=== PATIENT | female | born 1990 | race Caucasian/White ===

== ENCOUNTER → 2018-01-13 | Outpatient (CLI) | payer OTHER | LOC: M RAD 11:49 | DX: O16.3 Unspecified maternal hypertension, third trimester (principal); Z3A.30 30 weeks gestation of pregnancy | CPT/HCPCS: 76811 ==

== ENCOUNTER 2018-01-31 20:25 | Outpatient (CLI) | payer OTHER ==
--- NOTE | 2018-01-31 23:11 | IPNPDOC ---
Text Note Date of Service The patient was seen on 01/31/18. NOTE Triage Note Pattie is a 27yo with SIUP at approx 31wk who presents today for a couple of complaints. She notes she had pre-E with prior at 40w5d and she was concerned because she had some sharp pain in her upper abdomen that radiated to her back earlier, also a little bit of blurry vision with going upstairs. She denies GERD. She was given 1L of IVF in triage for some uterine irritability initially that totally resolved. She notes no ctx, no LOF, no vaginal bleeding. Has felt good movement. No headaches. Vitals: bp wnl, afebrile General: WDWN, resting comfortably in bed Abdomen: soft, gravid, NTTP in all quadrants with no rebound/guarding Back: No CVAT Extremities: no edema of BLE, no pain with palpation of calves FHRT: bl 130, +accels, -decels, mod caesar- reassuring for gest age [place]: initial slight uterine irritability that completely resolved Assessment: Pattie is a 27yo with SIUP at approx 31wk with normal complaints of , no e/o pre-eclampsia. Vitals wnl, benign exam. Silva ssuring status. Plan: -Safe for discharge -Encouraged increased hydration -Encouraged use of belly belt -Encouraged warm shower or bath to ease muscle strain in back along with massage -Keep routine visit this coming week in OB clinic -Continue chronic meds -Return precautions discussed MD Luna Fountain Katrina D MD Jan 31, 2018 23:11
== END 2018-01-31 23:41 | disposition home or self-care (01) ==
LOC: M LDO 20:25
PROVIDERS: ATTEND Obstetrics & Gynecology
DX: O99.89 Other specified diseases and conditions complicating pregnancy, childbirth and the puerperium (principal); M54.9 Dorsalgia, unspecified; R10.10 Upper abdominal pain, unspecified; O09.293 Supervision of pregnancy with other poor reproductive or obstetric history, third trimester; Z3A.31 31 weeks gestation of pregnancy
CPT/HCPCS: 59025; G0378; G0463

== ENCOUNTER → 2018-02-12 | Outpatient (CLI) | payer OTHER ==
--- NOTE | 2018-02-12 12:05 | REP ---
Clinical: Growth evaluation. History of hypertension. Comparison: 01/13/2018 . Findings: Examination demonstrates a single live intrauterine in transverse (head to maternal right) presentation. motion is identified by technologist. Placenta is noted anterior and grade grade 1 without evidence for placenta previa or abruption. Amniotic fluid volume is normal. Cervix measures 4.8 cm in length and appears closed. Nuchal cord cannot be excluded. Gestational age by LMP 32 weeks 4 days with ARIK 04/05/2018 . Gestational age by current measurements 34 weeks 4 days with ARIK 03/22/2018 . FHR equals 149 beats per minute. BPD 8.8 cm 35 weeks 4 days HC 32.1 cm 36 weeks 2 days AC 31.3 cm 35 weeks 2 days FL 6.3 cm 32 weeks 4 days HL 5.7 cm 33 weeks 0 days HC/AC ratio 1.03 Estimated weight 2484 grams (50th percentile). Amniotic fluid index: 18.8 cm (8.0 - 24.9) Umbilical cord SD ratio: 1.97 (2.00 - 3.00) Impression: 1. Single live advanced gestation in transverse presentation. Appropriate interval growth is appreciated when compared with first ultrasound. Amniotic fluid volume is within normal limits. No gross abnormalities are identified. 2. Nuchal cord cannot be excluded. Electronically Signed by Omar Jacques MD 02/12/2018 11:57 A
== END ==
LOC: M RAD 10:51 → EDUNIT# 11:00
PROVIDERS: ATTEND Nurse Practitioner Women's Health
DX: O10.013 Pre-existing essential hypertension complicating pregnancy, third trimester (principal); Z3A.28 28 weeks gestation of pregnancy

== ENCOUNTER 2018-03-28 17:41 | Inpatient (IN) | payer OTHER ==
[~2018-03-28] VITALS: Ht 160 cm; Wt 93.2 kg
[2018-03-28] VITALS (8 sets, daily range): BP systolic 92–129; BP diastolic 50–78
[2018-03-28] MEDS ORDERED: miSOPROStol 50 MCG 1/2 TAB (S0191) PO ONE (18:45)
[2018-03-28] MEDS ORDERED: PRENTAB9 PO (18:53)
[2018-03-28] MEDS ORDERED: ZOLO50TA PO (18:53)
[2018-03-28] MEDS ORDERED: ZYRTTAB8 PO (18:54)
[2018-03-28] MEDS ORDERED: HYDR12.55 PO (18:56)
[2018-03-28 19:46] LABS: ALT/SGPT 16 U/L (12-78); BILIRUBIN,TOTAL 0.1 MG/DL (0.2-1.0); CREATININE FOR GFR 0.47 MG/DL (0.55-1.30); GLOMERULAR FILTRATION RATE > 60.0 (>60); LDH LACTATE DEHYDROGENASE 183 U/L (84-246); URIC ACID 4.4 MG/DL (2.6-6.0)
[2018-03-28 19:49] LABS: HEMOGLOBIN 9.7 g/dl (12.0-15.5); MEAN CORPUSCULAR HEMOGLOBIN 24.6 pg (27.0-33.0); MEAN CORPUSCULAR HGB CONC 32.3 g/dl (32.0-36.5); MEAN CORPUSCULAR VOLUME 75.9 fl (80.0-96.0); PLATELET COUNT, AUTOMATED 224 10^3/uL (150-450); RED BLOOD COUNT 3.95 10^6/uL (4.00-5.40); WHITE BLOOD COUNT 7.7 10^3/uL (4.0-10.0)
[2018-03-28 20:14] LABS: TOTAL PROTEIN,RANDOM URINE 8.5 MG/DL (0.0-12.0)
[2018-03-28] MEDS ORDERED: OXYTOCIN DRIP 30 UNITS in APPROPRIATE DILUENT 1 EA IV SCH (22:00)
[2018-03-28] MEDS: LR 1,000 ML IV SCH (22:13)
[2018-03-29] VITALS (58 sets, daily range): BP systolic 86–125; BP diastolic 44–76
--- NOTE | 2018-03-29 00:59 | NUR ---
100 am review on pitocin 10 munits contractions adequate cervix no change safe to proceed
[2018-03-29] MEDS ORDERED: PROMETHAZINE INJ 25 MG/ML VIAL (J2550) IV ONE (04:00)
[2018-03-29] MEDS ORDERED: BUTORPHANOL 2 MG/ML INJ (J0595) IV ONE (04:00)
[2018-03-29] MEDS: LR 1,000 ML IV SCH ×4 (04:22→20:35)
--- NOTE | 2018-03-29 10:57 | IPNPDOC ---
Text Note Date of Service The patient was seen on 03/29/18. NOTE SBAR from Dr Dhillon at 730 FHT Cat 1 Pit at 20 mu/min Cx unchanged Desires epidural prior to AROM, h/o successful that went quickly after AROM with last child Rpt CBC, then bolus/epidural, then AROM with next check Shayne RUIZ VS,Skye, I+O VS, Skye I+O Laboratory Tests 03/28/18 18:39 Red Blood Count 3.95 L, Mean Corpuscular Volume 75.9 L, Mean Corpuscular Hemoglobin 24.6 L, Mean Corpuscular Hemoglobin Concent 32.3, Red Cell Distribution Width 13.0, Aspartate Amino Transf (AST/SGOT) 15, Alanine Aminotransferase (ALT/SGPT) 16, Lactate Dehydrogenase 183, Total Bilirubin 0.1 L, Uric Acid 4.4 Vital Signs Date Time Temp Pulse Resp B/P (MAP) Pulse Ox O2 Delivery O2 Flow Rate FiO2 03/29/18 10:13 98.9 94 18 112/61 (78) I&O- Last 24 Hours up to 6 AM 03/29/18 05:59 Intake Total 2140 ml Output Total 1050 ml Balance 1090 ml SESSIONS,OLAF Reeves MD Mar 29, 2018 10:57
[2018-03-29 11:18] LABS: HEMATOCRIT 28.2 % (36.0-47.0); HEMOGLOBIN 9.2 g/dl (12.0-15.5); MEAN CORPUSCULAR HEMOGLOBIN 24.9 pg (27.0-33.0); MEAN CORPUSCULAR HGB CONC 32.6 g/dl (32.0-36.5); MEAN CORPUSCULAR VOLUME 76.2 fl (80.0-96.0); PLATELET COUNT, AUTOMATED 194 10^3/uL (150-450); WHITE BLOOD COUNT 9.2 10^3/uL (4.0-10.0)
[2018-03-29] MEDS ORDERED: FENTANYL 2MCG/ML ROPIVACAINE 0.2% IN 0.9% NACL 100ML IVBAG As Ordered ONE (11:29)
[2018-03-29] MEDS ORDERED: LACTATED RINGER'S 1000 ML IV PRN (13:00)
[2018-03-29] MEDS ORDERED: EPIDURAL/PCA KEYS XX PRN (13:00)
[2018-03-29] MEDS ORDERED: NALOXONE INJ 0.4 MG/1 ML VIAL (J2310) IV PRN (13:00)
[2018-03-29] MEDS ORDERED: REFRIGERATOR IV KEYS XX PRN (13:00)
[2018-03-29] MEDS: FENTANYL/ROPIVACAINE/NACL BAG 100 ML EPIDURAL SCH ×2 (13:00→21:16)
[2018-03-29] MEDS ORDERED: ePHEDrine SULFATE 25 MG/5 ML(5MG/ML) SYRINGE IV PRN (13:00)
[2018-03-29] MEDS ORDERED: ONDANSETRON 4MG/2ML VIAL (J2405) IV PRN (13:00)
[2018-03-29] MEDS ORDERED: diphenhydrAMINE INJ 50MG/ML VIAL (J1200) IV PRN (13:00)
[2018-03-29] MEDS ORDERED: EPIDURAL COMMENT XX SCH (13:00)
--- NOTE | 2018-03-29 13:29 | IPNPDOC ---
Text Note Date of Service The patient was seen on 03/29/18. NOTE FHT Cat 2, needed 3 doses ephedrine for decr'd BP s/p epidural. Feeling well. Cx unchanged AROM with clr fluid Sessions VS,Skye I+O VSSkye I+O Laboratory Tests 03/28/18 18:39 Red Blood Count 3.95 L, Mean Corpuscular Volume 75.9 L, Mean Corpuscular Hemoglobin 24.6 L, Mean Corpuscular Hemoglobin Concent 32.3, Red Cell Distribution Width 13.0, Aspartate Amino Transf (AST/SGOT) 15, Alanine Aminotransferase (ALT/SGPT) 16, Lactate Dehydrogenase 183, Total Bilirubin 0.1 L, Uric Acid 4.4 03/29/18 11:02 Red Blood Count 3.70 L, Mean Corpuscular Volume 76.2 L, Mean Corpuscular Hemoglobin 24.9 L, Mean Corpuscular Hemoglobin Concent 32.6, Red Cell Distribution Width 13.2 Vital Signs Date Time Temp Pulse Resp B/P (MAP) Pulse Ox O2 Delivery O2 Flow Rate FiO2 03/29/18 10:13 98.9 94 18 112/61 (78) I&O- Last 24 Hours up to 6 AM 03/29/18 05:59 Intake Total 2140 ml Output Total 1050 ml Balance 1090 ml SESSIONS,OLAF Reeves MD Mar 29, 2018 13:29
--- NOTE | 2018-03-29 18:33 | IPNPDOC ---
Text Note Date of Service The patient was seen on 03/29/18. NOTE Pit still at 20 mu/min Pain manageable, more pressure noted FHT Cat 1, reg ctx's Cx 5/80/-1/vtx well applied Recheck ~2100 Sessions VS,Skye, I+O VS, Skye I+O Laboratory Tests 03/28/18 18:39 Red Blood Count 3.95 L, Mean Corpuscular Volume 75.9 L, Mean Corpuscular Hemoglobin 24.6 L, Mean Corpuscular Hemoglobin Concent 32.3, Red Cell Distribution Width 13.0, Aspartate Amino Transf (AST/SGOT) 15, Alanine Aminotransferase (ALT/SGPT) 16, Lactate Dehydrogenase 183, Total Bilirubin 0.1 L, Uric Acid 4.4 03/29/18 11:02 Red Blood Count 3.70 L, Mean Corpuscular Volume 76.2 L, Mean Corpuscular Hemoglo bin 24.9 L, Mean Corpuscular Hemoglobin Concent 32.6, Red Cell Distribution Width 13.2 Vital Signs Date Time Temp Pulse Resp B/P (MAP) Pulse Ox O2 Delivery O2 Flow Rate FiO2 03/29/18 17:33 98.8 88 18 107/63 (78) I&O- Last 24 Hours up to 6 AM 03/29/18 06:00 Intake Total 2640 ml Output Total 1050 ml Balance 1590 ml SESSIONS,OLAF Reeves MD Mar 29, 2018 18:33
--- NOTE | 2018-03-29 21:50 | IPNPDOC ---
Text Note Date of Service The patient was seen on 03/29/18. NOTE FHT Cat 2 with intermittent variables AL/100/+1, reduced with pushing, feels better pushing Oncall for delivery Sessions VS,Skye, I+O VSSkye I+O Laboratory Tests 03/29/18 11:02 Red Blood Count 3.70 L, Mean Corpuscular Volume 76.2 L, Mean Corpuscular Hemoglobin 24.9 L, Mean Corpuscular Hemoglobin Concent 32.6, Red Cell Distribution Width 13.2 Vital Signs Date Time Temp Pulse Resp B/P (MAP) Pulse Ox O2 Delivery O2 Flow Rate FiO2 03/29/18 19:03 100 18 108/55 (72) 03/29/18 17:33 98.8 I&O- Last 24 Hours up to 6 AM 03/29/18 06:00 Intake Total 2640 ml Output Total 1050 ml Balance 1590 ml SESSIONS,OLAF Reeves MD Mar 29, 2018 21:50
--- NOTE | 2018-03-29 21:50 | HPE ---
DATE OF ADMISSION: 03/28/2018 27-year-old 3, para 1, abortus 1, LMP 07/03/2017, EDC 04/05/2018 at 38 and 1 with history of chronic hypertension, preeclampsia, was for induction of labor tomorrow, came in with contractions moderate intensity every 4 minutes apart. Risk factors is chronic hypertension, BMI greater than 34. Her past history: In 2013 had a spontaneous at 8 weeks. 2016 at 40 weeks spontaneous vaginal delivery after 20 hours of labor, was induced for preeclampsia and chronic hypertension, male, 7 pounds 15 ounces. Labs are AB positive, HIV negative, hepatitis negative, RPR negative, rubella immune. Pap shows ASCUS, HPV positive. Urine is mixed genet. Gonorrhea and chlamydia are negative. 1-hour GTT was 117. At 28 weeks her GTT was 108. GBS is negative. On examination, no acute distress. Symphysis fundus height is 40, vertex, OA, posterior, soft, -3 station, 2-3 cm, 50% effaced. Urine is 1.010, pH 5, negative, negative, negative. Blood pressure is 129/71, respirations 18, pulse 94, temperature 98.7. The rest of the examination is unremarkable. She has category one strip. Normocephalic, atraumatic. Neck full range of motion. Pupils equal and reactive to light. Distal pulses are symmetric. No evidence of DVT, PE or superficial phlebitis. Chest is clear bilaterally to bases. No wheezes or rhonchi. No CVA tenderness. Four quadrant bowel sounds are noted. No rashes, lesions or pruritus. No arthralgia, myalgia. No complaint of joint pain. No complaint of cough, wheeze, shortness of breath or dyspnea on exertion. Not bleeding. Neurologically complete. No incontinency, urgency, or frequency. No nausea, vomiting, diarrhea, constipation. No diabetic issues. No CREDIT ASSOCIATE issues. Gynecologically she has had an abnormal Pap smear with ASCUS HPV positive. Past medical and surgical unremarkable. Family history noncontributory. She does not smoke, drink, abuse drugs. 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 No domestic violence and good support system. We discussed the consent for vaginal delivery and delivery through the vagina with the possibility of use of assistance of forceps or vacuum devices if needed for maternal or indications, forceps or vacuum devices that can assist with vaginal delivery when normal pushing efforts cannot achieve delivery on their own or when delivery is needed in an emergency for the baby's well-being. Medications may be may be used to augment or induce labor in order to achieve a vaginal delivery. Episiotomy may be required to help baby deliver vaginally. You may also require repair of lacerations or tears of vagina or vulva and that can occur in spontaneous vaginal delivery. In some cases emergencies can occur that require emergency section delivery so quickly there may not be time to do the formal complete consent forms, however, before doing anything the provider will discuss the reason for the section before they proceed with surgery. section is delivery through an incision on your abdomen. section is only undertaken for or maternal indications and it may be safer for mom and baby than continuing labor and again only performed with clinical indications. Risks of vaginal delivery include but are not limited to bleeding, infection, injury to vagina, pelvic structures, injury to baby, damage to the uterus, reaction to anesthesia, uterine rupture, risk of hysterectomy which is because of life-threatening bleeding situations, very remote, blood transfusion which is remote, uterine tachysystole, heart rate abnormalities and the need for emergency delivery or possible and hysterectomy and hemorrhage. Additional risks for the use of forceps and vacuum include scratches, hematomas to the head or intracranial bleed. After expressed understanding, patient and her wish to continue on. We plan on using Cytotec orally to initiate and soften up the cervix, after which we will continue on with Pitocin that she had before and the patient is requesting epidural as required. In summary, we have a 38 and 1, there is history of chronic hypertension, for induction of labor and to augment labor.
[2018-03-29] MEDS ORDERED: OXYTOCIN 30 UNITS IN 0.9% NaCl 500ML IV BAG (J2590) As Ordered ONE (23:28)
[2018-03-29] MEDS ORDERED: OXYTOCIN DRIP 30 UNITS in APPROPRIATE DILUENT 1 EA IV SCH ×4 (23:39)
[2018-03-29] MEDS ORDERED: RHOGAM 300 MCG (1500 IU) INJ (J2790) IM SCH (23:45)
[2018-03-29] MEDS ORDERED: DIBUCAINE 1% OINTMENT 30GM TOP PRN (23:45)
[2018-03-29] MEDS ORDERED: MEASLES,MUMPS,RUBELLA VACCINE INJ (MMR-II) (90707) SC SCH (23:45)
[2018-03-29] MEDS ORDERED: miSOPROStol 200 MCG TAB (S0191) PR ONE (23:45)
[2018-03-29] MEDS ORDERED: METOCLOPRAMIDE INJ 10MG/2ML VIAL (J2765) IV PRN (23:45)
--- NOTE | 2018-03-29 23:56 | DNPDOC ---
[facility] Delivery Note Delivery Note DATE OF DELIVERY: [id number] PREDELIVERY DIAGNOSIS: 39 0/7 weeks' gestation and labor. POST DELIVERY DIAGNOSIS: Delivered. PROCEDURE: Spontaneous vaginal delivery VICE PRESIDENT REGULATORY: Dr. Ventura ANESTHESIA: epidural ESTIMATED BLOOD LOSS: 300 mL. FINDINGS: 8 pound 15 ounce male , Score 6/8 DELIVERY SUMMARY: Posterior Asynclitism, excellent pusher, thought to be ROP/ROT. Vtx delivered HA w/o difficulty but both shoulders transverse, uniquely the posterior right shoulder just below the horizon delivered first followed by slow but steady left anterior shoulder. To abdomen, stunned. Cord C/C by FOB, to warmer for resuscitation. Placenta intact with pit bolusing 999, good fundal tone. Small post vag wall lac closed with 3-0 vicryl, single figure of eight. Cx and per intact. Tina VENTURA,OLAF Reeves MD Mar 29, 2018 23:56
[2018-03-30] VITALS (11 sets, daily range): BP systolic 86–130; BP diastolic 47–76
[2018-03-30] MEDS: IBUPROFEN 800 MG TAB PO PRN ×3 (04:04→20:50)
--- NOTE | 2018-03-30 04:58 | IPNPDOC ---
Text Note Date of Service The patient was seen on 03/30/18. NOTE PPD1 States feeling well, pain controlled with prescribed meds. Baby bonding and feeding well. No heavy VB. Lochia slowing. Ambulating and voiding well. Tolerating PO without issues. VSSAF NAD A&O RRR CTAB LE no C/C/E Ut at U-2, firm a/p: Doing well. Cont routine care. D/C likely tomorrow. Sessions Skye ROJO, I+O Skye ROCKWELL I+O Laboratory Tests 03/29/18 11:02 Red Blood Count 3.70 L, Mean Corpuscular Volume 76.2 L, Mean Corpuscular Hemoglobin 24.9 L, Mean Corpuscular Hemoglobin Concent 32.6, Red Cell Distribution Width 13.2 Vital Signs Date Time Temp Pulse Resp B/P (MAP) Pulse Ox O2 Delivery O2 Flow Rate FiO2 03/30/18 02:45 99.0 90 18 107/59 (75) I&O- Last 24 Hours up to 6 AM 03/30/18 06:00 Intake Total 6003 ml Output Total 3350 ml Balance 2653 ml OLAF VENTURA MD Mar 30, 2018 04:58
[2018-03-30] MEDS: SERTRALINE HCL 50 MG TAB PO SCH (08:28)
[2018-03-30] MEDS: DOCUSATE SODIUM 100 MG CAP PO SCH ×2 (08:28→20:50)
[2018-03-30] MEDS: PRENATAL VITAMINS CHEWABLE TABLET PO SCH (08:28)
[2018-03-30] MEDS: ACETAMINOPHEN TAB 650MG DOSE (2X325MG) PO PRN ×2 (08:34→16:37)
[2018-03-31] MEDS: ACETAMINOPHEN TAB 650MG DOSE (2X325MG) PO PRN ×2 (03:41→08:11)
[2018-03-31] MEDS: IBUPROFEN 800 MG TAB PO PRN ×2 (05:32→13:13)
[2018-03-31 06:00] VITALS: BP 119/56
--- NOTE | 2018-03-31 07:30 | DS.PDOC ---
Discharge Summary General Date of Admission Mar 28, 2018 at 18:24 Date of Discharge Mar 31, 2018 Discharge Summary HOSPITAL COURSE: Ms. Robertson is a 27 yo G3 Now P2 who underwent an uncomplicated on 29Mar2018 after being admitted for active labor. Her course has been unremarkable. On her day of discharge she met all appropriate discharge criteria. She was ambulating, voiding, tolerating a regular diet, and her pain was well controlled with PO pain medication. Lochia has been minimal. DISCHARGE MEDICATIONS: Please see below. ALLERGIES: Please see below. PHYSICAL EXAMINATION ON DISCHARGE: VITAL SIGNS: Please see below. GENERAL: AAOX3, sitting up in bed, NAD ABDOMINAL EXAMINATION: Fundus firm at U-2. No fundal tenderness. EXTREMITIES: No edema PSYCHIATRIC EXAMINATION: Affect appropriate LABORATORY DATA: Please see below. ACTIVITY: Pelvic rest for 6 weeks. DIET: Regular DISCHARGE PLAN: ME home DISPOSITION: discharge home on 31Mar2018. DISCHARGE INSTRUCTIONS: 1. Pelvic rest for 6 weeks. ITEMS TO FOLLOWUP ON ON OUTPATIENT: 1. appointment in 6-8 weeks. DISCHARGE CONDITION: Stable. TIME SPENT ON DISCHARGE: Greater than 20 minutes. Ruth Guardado DO Vital Signs/I&Os Vital Signs Date Time Temp Pulse Resp B/P (MAP) Pulse Ox O2 Delivery O2 Flow Rate FiO2 03/31/18 06:00 97.6 84 16 119/56 (77) 03/30/18 18:00 96 Discharge Medications Scheduled Hydrochlorothiazide (Hydrochlorothiazide) 12.5 Mg Tab, 12.5 MG PO DAILY, (Reported) Multivitamins/ ( 27-0.8 mg) 1 Tab Tab, 1 TAB PO DAILY, (Reported) Sertraline Hcl (Zoloft) 50 Mg Tab, 50 MG PO DAILY, (Reported) Miscellaneous Medications (Zyrtec-D Allergy/Congesti 5-120 mg) 1 Tab Tab, 1 TAB PO, (Reported) Allergies Coded Allergies: Cefaclor (Verified Allergy, Unknown, SWOLLEN JOINTS, RASH, 03/28/18) RUTH GUARDADO DO Mar 31, 2018 07:30
[2018-03-31] MEDS ORDERED: MAPA500T2 PO (07:42)
[2018-03-31] MEDS ORDERED: COLA100C5 PO (07:42)
[2018-03-31] MEDS ORDERED: IBUP-1114 PO (07:42)
[2018-03-31] MEDS: PRENATAL VITAMINS CHEWABLE TABLET PO SCH (08:10)
[2018-03-31] MEDS: DOCUSATE SODIUM 100 MG CAP PO SCH (08:11)
[2018-03-31] MEDS: SERTRALINE HCL 50 MG TAB PO SCH (08:11)
== END 2018-03-31 13:40 | disposition home or self-care (01) | DRG 807 ==
LOC: M LDO 17:41 → M LDI 18:24 → M OBS 03-30 02:49
PROVIDERS: ADMIT Obstetrics & Gynecology; ATTEND Obstetrics & Gynecology
PROC: 10E0XZZ Delivery of Products of Conception, External Approach (ICD-10-PCS; principal; 2018-03-29)
PROC: 10907ZC Drainage of Amniotic Fluid, Therapeutic from Products of Conception, Via Natural or Artificial Opening (ICD-10-PCS; 2018-03-29)
DX: O11.4 Pre-existing hypertension with pre-eclampsia, complicating childbirth (principal); Z37.0 Single live birth; Z3A.39 39 weeks gestation of pregnancy; O70.0 First degree perineal laceration during delivery; Z88.8 Allergy status to other drugs, medicaments and biological substances

== ENCOUNTER → 2018-04-13 | Outpatient (CLI) | payer OTHER ==
[~2018-04-13] MED LIST: COLA100C5 PO; HYDR12.55 PO; IBUP-1114 PO; MAPA500T2 PO; PRENTAB9 PO; ZOLO50TA PO; ZYRTTAB8 PO
--- NOTE | 2018-04-13 15:06 | REP ---
Clinical: Right upper extremity swelling . Technique: Wayne scale and color Doppler evaluation using linear high frequency transducer. Findings: Ultrasound examination of the right upper extremity including visualized jugular, subclavian, axillary, brachial, basilic, and cephalic veins demonstrate normal compressibility, flow and wave patterns in response to respiration and augmentation. There is no evidence for deep venous thrombosis. Impression: No evidence for deep venous thrombosis involving the right upper extremity . Electronically Signed by Omar Jacques MD 04/13/2018 02:58 P
== END ==
LOC: M RAD 14:03
PROVIDERS: ATTEND Family Medicine
DX: M25.511 Pain in right shoulder (principal)

== ENCOUNTER 2020-01-20 20:43 | Outpatient (CLI) | payer OTHER ==
[~2020-01-20] VITALS: Ht 162.6 cm; Wt 97.1 kg
[2020-01-20 21:05] VITALS: BP 118/69
[2020-01-20] MEDS ORDERED: LR 1,000 ML IV ONE (21:30)
[2020-01-20] MEDS ORDERED: LR 1,000 ML IV SCH (21:30)
--- NOTE | 2020-01-21 00:22 | REPVR ---
PROCEDURE INFORMATION: Exam: US After First Trimester, Transabdominal Exam date and time: 01/20/2020 10:53 PM Age: 29 years old Clinical indication: Lmp or gestational age (in weeks): 30; Antepartum complications; Other: Labor check; ; Additional info: Bpp, weight, cervical length TECHNIQUE: Imaging protocol: Real-time transabdominal obstetrical ultrasound of the maternal pelvis and a second or third trimester with image documentation. COMPARISON: US OBS FOLL UP OR REPEAT EACH GES 02/12/2018 11:02 AM FINDINGS: Last menstrual period: 06/21/2019 Gestation: There is a single living intrauterine . heart rate: 161 bpm Presentation: Cephalic Placenta: Grade 1. Anterior location. No placenta previa. No placental abruption. Amniotic fluid: Normal. Amniotic fluid index: 20.1 cm (8.9-23.6 cm) ANATOMY: Midline falx: Normal. Cerebellum: Normal. Cerebral ventricles: Normal. Cisterna magna: Normal. Septum pellucidum: Normal. Upper lip and nose: Normal. Heart four-chamber view, heart size and position: Normal. kidneys: Normal. stomach: Normal. urinary bladder: Normal. Spine: Poorly visualized due to motion. Umbilical cord insertion site into the abdomen: Normal. Umbilical cord vessel number: Normal three-vessel umbilical cord. Arms and hands: Within normal limits as visualized. Legs and feet: Within normal limits as visualized. external genitalia: Not visualized. BIOMETRY: Gestational age (AUA): 31 weeks 5 days Gestational age by LMP: 30 weeks 3 days Estimated due date (AUA): 03/18/2020 Estimated due date by LMP: 03/27/2020 Estimated weight: 1826 g / 4 lb 0 oz (4963-2260 g), which is in the 68th percentile Biparietal diameter: 8.1 cm; 32 weeks 2 days, which is in the 78th percentile Head circumference: 29.8 cm; 33 weeks 0 days, which is in the 89th percentile Abdominal circumference: 28 cm; 32 weeks 0 days, which is in the 75th percentile Humerus length: 5.3 cm; 30 weeks 6 days, which is in the 58th percentile Femur length: 5.9 cm; 30 weeks 4 days, which is in the 53rd percentile biometric ratios: Ratios: FL/BPD = 0.73 (0.71-0.87); FL/AC = 0.21 (0.20-0.24); HC/AC = 1.06 (0.97-1.16); CI = 0.75 (0.70-0.86) MATERNAL ANATOMY: Uterus: Unremarkable. Cervix: The cervix is closed and measures 4.7 cm in length. No funneling of the cervix is noted. Right adnexa: The right ovary was not visualized due to obscuration by intestinal gas. Left adnexa: The left ovary was not visualized due to obscuration by intestinal gas. Intraperitoneal space: No free fluid is seen from the images obtained. IMPRESSION: 1. Single live intrauterine with a gestational age by today's ultrasound of 31 weeks 5 days and estimated due date on 03/18/2020 with appropriate signs of growth. 2. Estimated weight of 1826 g / 4 lb 0 oz, which is in the 68th percentile. 3. Cervical length of 4.7 cm. PROCEDURE INFORMATION: Exam: US Doppler Velocimetry of the Umbilical Artery Exam date and time: 01/20/2020 10:53 PM Age: 29 years old Clinical indication: Lmp or gestational age (in weeks): 30; Antepartum complications; Other: Labor check; ; Additional info: Bpp, weight, cervical length TECHNIQUE: Imaging protocol: US Doppler velocimetry of the umbilical artery with Doppler color and waveform analysis. COMPARISON: US OBS FOLL UP OR REPEAT EACH GES 02/12/2018 11:02 AM FINDINGS: Umbilical cord and insertion: There are 2 umbilical arteries and 1 umbilical vein. Cord insertion on the abdominal wall is normal. Umbilical artery Doppler: PSV = 39.4 cm/s. EDV = 19 cm/s. S/D ratio = 2.07, which is within normal limits (1.94-4.05). RI = 0.52, which is within normal limits (0.52-0.76). There is normal continuous forward flow in the umbilical artery during diastole and no absent or reversed end-diastolic flow is noted. Umbilical artery peak systolic velocity: 39.4 cm/s Umbilical artery systolic to diastolic ratio: Systolic to diastolic ratio is within normal limits for age and measures 2.07. IMPRESSION: Unremarkable umbilical Doppler for age. PROCEDURE INFORMATION: Exam: US Biophysical Profile Without Non-Stress Test Exam date and time: 01/20/2020 10:53 PM Age: 29 years old Clinical indication: Lmp or gestational age (in weeks): 30; Antepartum complications; Other: Labor check; ; Additional info: Bpp, weight, cervical length TECHNIQUE: Imaging protocol: US biophysical profile without non-stress testing. COMPARISON: US OBS FOLL UP OR REPEAT EACH GES 02/12/2018 11:02 AM FINDINGS: BIOPHYSICAL PROFILE: Breathin/2 Gross body movements: 2/2 tone: 2/2 Qualitative amniotic fluid: 2/2 Biophysical Profile Score: 8/8 IMPRESSION: Biophysical profile score is 8 out of 8. Electronically signed by: Cortez Roldan On 01/21/2020 00:22:32 AM
[2020-01-21 00:39] VITALS: BP 110/61
--- NOTE | 2020-01-21 08:40 | IPNPDOC ---
Text Note Date of Service The patient was seen on 01/21/20. NOTE [facility] NAME: SARAH DELACRUZ DATE OF : 1990 BUSINESS NUMBER: [id number] AGE: 29 SEX: F REPORT #: [id number] ROOM: [facility] TECHNOLOGIST: NANCY DOCTOR: Darien Dhillon MD Ordered for Date&Time: 01/20/202121 cc: [~ rep ct ivnm] Service Date&Time: 01/20/202252 This report is in Signed status. Interpretation performed by [facility]. Thank you for having your radiology procedures performed at [facility] RADIOLOGY REPORT Date&Time printed: [~ rep prt dt last] [~ rep prt tm last] Page 4 of [address] [address] RADIOLOGY REPORT This report is in Signed status. Interpretation performed by [facility]. Thank you for having your radiology procedures performed at [facility] RADIOLOGY REPORT Date&Time printed: [~ rep prt dt last] [~ rep prt tm last] Page 1 of 4 cc: [~ rep ct ivnm] Service Date&Time: 01/20/202252 EXAMINATION REQUESTED: US OBS SINGEL GEST REASON FOR PATIENT VISIT: LABOR CHECK REASON FOR EXAMINATION: BPP, WEIGHT, CERVICAL LENGTH PROCEDURE INFORMATION: Exam: US After First Trimester, Transabdominal Exam date and time: 01/20/2020 10:53 PM Age: 29 years old Clinical indication: Lmp or gestational age (in weeks): 30; Antepartum complications; Other: Labor check; ; Additional info: Bpp, weight, cervical length TECHNIQUE: Imaging protocol: Real-time transabdominal obstetrical ultrasound of the maternal pelvis and a second or third trimester with image documentation. COMPARISON: US OBS FOLL UP OR REPEAT EACH GES 02/12/2018 11:02 AM FINDINGS: Last menstrual period: 06/21/2019 Gestation: There is a single living intrauterine . heart rate: 161 bpm Presentation: Cephalic Placenta: Grade 1. Anterior location. No placenta previa. No placental abruption. Amniotic fluid: Normal. Amniotic fluid index: 20.1 cm (8.9-23.6 cm) ANATOMY: Midline falx: Normal. Cerebellum: Normal. Cerebral ventricles: Normal. Cisterna magna: Normal. Septum pellucidum: Normal. Upper lip and nose: Normal. Heart four-chamber view, heart size and position: Normal. kidneys: Normal. stomach: Normal. urinary bladder: Normal. Spine: Poorly visualized due to motion. Umbilical cord insertion site into the abdomen: Normal. Umbilical cord vessel number: Normal three-vessel umbilical cord. Arms and hands: Within normal limits as visualized. Legs and feet: Within normal limits as visualized. external genitalia: Not visualized. BIOMETRY: Gestational age (AUA): 31 weeks 5 days Gestational age by LMP: 30 weeks 3 days Estimated due date (AUA): 03/18/2020 Estimated due date by LMP: 03/27/2020 Estimated weight: 1826 g / 4 lb 0 oz (0464-8923 g), which is in the 68th percentile Biparietal diameter: 8.1 cm; 32 weeks 2 days, which is in the 78th percentile Head circumference: 29.8 cm; 33 weeks 0 days, which is in the 89th percentile Abdominal circumference: 28 cm; 32 weeks 0 days, which is in the 75th percentile Humerus length: 5.3 cm; 30 weeks 6 days, which is in the 58th percentile Femur length: 5.9 cm; 30 weeks 4 days, which is in the 53rd percentile biometric ratios: Ratios: FL/BPD = 0.73 (0.71-0.87); FL/AC = 0.21 (0.20-0.24); HC/AC = 1.06 (0.97-1.16); CI = 0.75 (0.70-0.86) MATERNAL ANATOMY: Uterus: Unremarkable. Cervix: The cervix is closed and measures 4.7 cm in length. No funneling of the cervix is noted. Right adnexa: The right ovary was not visualized due to obscuration by intestinal gas. Left adnexa: The left ovary was not visualized due to obscuration by intestinal gas. Intraperitoneal space: No free fluid is seen from the images obtained. IMPRESSION: 1. Single live intrauterine with a gestational age by today's ultrasound of 31 weeks 5 days and estimated due date on 03/18/2020 with appropriate signs of growth. 2. Estimated weight of 1826 g / 4 lb 0 oz, which is in the 68th percentile. 3. Cervical length of 4.7 cm. PROCEDURE INFORMATION: Exam: US Doppler Velocimetry of the Umbilical Artery Exam date and time: 01/20/2020 10:53 PM Age: 29 years old Clinical indication: Lmp or gestational age (in weeks): 30; Antepartum complications; Other: Labor check; ; Additional info: Bpp, weight, cervical length TECHNIQUE: Imaging protocol: US Doppler velocimetry of the umbilical artery with Doppler color and waveform analysis. COMPARISON: US OBS FOLL UP OR REPEAT EACH GES 02/12/2018 11:02 AM FINDINGS: Umbilical cord and insertion: There are 2 umbilical arteries and 1 umbilical vein. Cord insertion on the abdominal wall is normal. Umbilical artery Doppler: PSV = 39.4 cm/s. EDV = 19 cm/s. S/D ratio = 2.07, which is within normal limits (1.94-4.05). RI = 0.52, which is within normal limits (0.52-0.76). There is normal continuous forward flow in the umbilical artery during diastole and no absent or reversed end-diastolic flow is noted. Umbilical artery peak systolic velocity: 39.4 cm/s Umbilical artery systolic to diastolic ratio: Systolic to diastolic ratio is within normal limits for age and measures 2.07. IMPRESSION: Unremarkable umbilical Doppler for age. PROCEDURE INFORMATION: Exam: US Biophysical Profile Without Non-Stress Test Exam date and time: 01/20/2020 10:53 PM Age: 29 years old Clinical indication: Lmp or gestational age (in weeks): 30; Antepartum complications; Other: Labor check; ; Additional info: Bpp, weight, cervical length TECHNIQUE: Imaging protocol: US biophysical profile without non-stress testing. COMPARISON: US OBS FOLL UP OR REPEAT EACH GES 02/12/2018 11:02 AM FINDINGS: BIOPHYSICAL PROFILE: Breathin/2 Gross body movements: 2/2 tone: 2/2 Qualitative amniotic fluid: 2/2 Biophysical Profile Score: 8/8 IMPRESSION: Biophysical profile score is 8 out of 8. Electronically signed by: Cortez Cleary On 01/21/2020 00:22:32 AM DD: CORTEZ CLEARY MD 01/20/20 2253 DT: KATHLEEN 01/21/2021 DS: MARIANNA 01/21/20 0022 [~ rep ct labl] 01/21/20 29 YO A 1 LMP 06/21/2019 EDC 03/27/2020 AT 30 WEEKS 3 DAYS HAVING LOWER PELVIC PAIN UNCERTAIN IF CONTRACTIONS,NO LOF NO VAGINAL BLEEDING . PAST HISTORY 04/19/2015 40.1 WEEKS IOL PRE E 03/29/2018 37 WEEKS 2014 SPON AB 8 WEEKS RISK FACTORS CHTN BACK PAIN HERNIATED DISC BMI 33.3 BLOOD WORK AB POSITIVE HIV NEGATIVE HEP B NEGATIVE RUBELLA IMMUNE VARICELLA NON IMMUNE URINE MIXED ABI G AND C NEGATIVE 1 HOUR GLUCOSE 103 28 GTT 138 PHYSICAL EXAMINATION NO ACUTE DISTRESS CATEGORY 1 STRIP MODERATE VARIABILITY OCCASIONAL CONTRACTION . SF HEIGHT 30 CM 4 QUADRATE BOWEL SOUNDS NON IRRITABLE UTERUS URINE 1.025 6.0 NEGATIVE PLAN HYDRATE NST US DISCHARGE WHEN STABLE WITH PRECAUTIONS APPOINTMENT AT [facility] OB VS,Skye, I+O VS, Skye, I+O Vital Signs Date Time Temp Pulse Resp B/P (MAP) Pulse Ox O2 Delivery O2 Flow Rate FiO2 01/21/20 00:39 88 110/61 (77) 01/20/20 21:05 98.1 Darien Dhillon MD Jan 21, 2020 01:49
== END 2020-01-21 01:11 | disposition home or self-care (01) ==
LOC: M LDO 20:43
PROVIDERS: ATTEND Obstetrics & Gynecology
DX: O26.893 Other specified pregnancy related conditions, third trimester (principal); R10.30 Lower abdominal pain, unspecified; Z3A.30 30 weeks gestation of pregnancy
CPT/HCPCS: 59025; 76811; 76815; 76819; 76820; G0378; G0463

== ENCOUNTER → 2020-02-13 | Outpatient (CLI) | payer OTHER ==
--- NOTE | 2020-02-13 09:56 | REP ---
INDICATION: BIOPHYSICAL PROFILE COMPARISON: 01/20/2020 TECHNIQUE: Transabdominal obstetrical ultrasound with color Doppler evaluation. FINDINGS: Examination demonstrates a single live advanced intrauterine in cephalic presentation. motion is identified by technologist. Placenta is noted anterior and grade 1 without evidence for placenta previa or abruption. Amniotic fluid volume is normal. Gestational age by LMP 33 weeks 6 days with ARIK 03/27/2020. FHR equals 139 beats per minute. YANDY: 20.9 cm (8.1-24.8) Biophysical profile score: 8/8 Umbilical artery SD ratio: 2.14 (1.74-3.69) IMPRESSION: Single live advanced gestation in cephalic presentation. Biophysical profile score is normal. Amniotic fluid index is upper limits of normal. <Electronically signed by Omar Jacques > 02/13/20 0977
== END ==
LOC: M RAD 09:15
PROVIDERS: ATTEND Obstetrics & Gynecology
DX: Z36.89 Encounter for other specified antenatal screening (principal); Z3A.33 33 weeks gestation of pregnancy

== ENCOUNTER 2020-03-03 02:09 | Outpatient (CLI) | payer OTHER ==
[~2020-03-03] VITALS: Ht 162.6 cm; Wt 99.8 kg
[2020-03-03 02:28] VITALS: BP 131/71
[2020-03-03 03:29] VITALS: BP 120/66
--- NOTE | 2020-03-03 04:55 | IPNPDOC ---
Text Note Date of Service The patient was seen on 03/03/20. NOTE 29 yo LMP 06/21/2019 EDC 03/27/2020 AT 36.3 SEEN IN TRIAGE RE CONTRACTIONS MODERATE . NO VAGINAL LOSS NO BLEEDING. RISK FACTORS CHTN HERNIATED DISC BMI 33.3 POLYHYDRAMNIOS ANXIETY PAST HISTORY 2015 40.5 IOL PRE E 7LBS 2 OZ 2018 39 .0 8LBS 15 OZ 2013 SPON PHYSICAL EXAMINATION NOT IN ACUTE DISTRESS CONTRACTIONS SPACED OUT NOT BOTHERSOME . CERVIX POSTERIOR FT FIRM NO VAGINAL LOSS OR BLOOD . URINE 1.000 PH 6.0 ALL NEGATIVE CATAGORY 1 STRIP CONTRACTIONS SPACED MILD MODERATE VARIABILITY ACCELERATIONS NOTED BASELINE NORMAL. PATIENT DISCHARGED WITH PRECAUTIONS AND REVIEWED [facility] PROM LABOR BLEEDING BOOKED IOL AT 38 WEEKS Vital Signs Label Value Date Time Patient Temperature 97.8 degrees F 03/03/20227 Temperature Source Temporal 03/03/20227 Pulse 108 03/03/20227 Respiratory Rate 18 bpm 03/03/20227 Blood Pressure Assessment 131/71 (91) 03/03/208 Source Automatic Cuff (NIBP) Pulse 81 03/03/209 Blood Pressure Assessment 120/66 (84) 03/03/20328 Source Automatic Cuff (NIBP) Darien Dhillon MD Mar 03, 2020 04:53
== END 2020-03-03 04:30 | disposition home or self-care (01) ==
LOC: M LDO 02:09
PROVIDERS: ATTEND Obstetrics & Gynecology
DX: O26.893 Other specified pregnancy related conditions, third trimester (principal); Z3A.36 36 weeks gestation of pregnancy
CPT/HCPCS: 59025; G0378; G0463

== ENCOUNTER 2020-03-09 16:58 | Inpatient (IN) | payer OTHER ==
[2020-03-09] VITALS (8 sets, daily range): BP systolic 111–142; BP diastolic 67–76
[~2020-03-09] VITALS: Ht 162.6 cm; Wt 100.7 kg
[2020-03-09] MEDS ORDERED: IRON240T PO (17:18)
[2020-03-09] MEDS ORDERED: VITA250T4 PO (17:19)
[2020-03-09] MEDS ORDERED: UNIS25TA3 PO (17:26)
[2020-03-09] MEDS ORDERED: LACTATED RINGER'S 1000 ML IV STA (17:56)
[2020-03-09] MEDS: LR 1,000 ML IV SCH (17:56)
[2020-03-09] MEDS ORDERED: miSOPROStol 25MCG 1/4 TABLET PO ONE (18:00)
--- NOTE | 2020-03-09 18:29 | HPEPDOC ---
Obstetrical History & Physical General Date of Admission Mar 09, 2020 at 17:58 History of Present Illness 29 yo @ 37+3 by LMP C/W 1ST US admitted for IOL for CHTN on meds. she pr esents for labor check and found to be 1 cm, but ricky q1 min. she has been contacting for the last 2 hrs. she reports regular movements. denies VB or LOF. she denies any headaches, vision changes, nausea or vomiting. she has no other s/s of pre e Information Provided By: Patient Age: 29 Care Care: Good Care Dating Final EDC: Mar 27, 2020 Final EDC by: LMP LMP: June 21, 2019 Estimated Date of Confinement: Mar 27, 2020 Antepartum Course Diagnos(e)s 1. CHTN on meds- pre e labs pending on admission 2. Polyhydromnios 3. obesity, prepregnancy BMI 33 4. Depression on zoloft 25mg 5. back pain with herniated disc- does PT 6. Abnormal 1hr, normal 3hr GTT Height (inches): 64 Pre- weight (lbs.): 200 Admission Weight (lbs.): 215 Change in Weight (lbs.): 15 Past Medical History Past Obstetrical History : Past Obstetrical History: Multigravida Past Medical History Medical History Depression Surgical History: Other (Adenoidectomy) Family History Significant Family History: No pertinent family hx Social History Marital Status: Single Family situation: Spouse/partner home * Smoker: non-smoker Alcohol: Denies Drugs: denies Abuse Violence Screening Have you been hit/kicked/slapp: No Have you been sexually assault: No Imunizations Tdap status: current Influenza Status: needs Allergies Coded Allergies: cefaclor (Verified Allergy, Intermediate, RASH, SWOLLEN JOINTS, 01/20/20) Medications Scheduled Ascorbic Acid (Vitamin C) 250 Mg Tablet, 1 TAB PO DAILY Doxylamine Succinate (Unisom Sleep Aid) 25 Mg Tablet, 1 TAB PO QPM Ferrous Gluconate (Iron) 240 Mg Tablet, 1 TAB PO DAILY Hydrochlorothiazide (Hydrochlorothiazide) 12.5 Mg Tab, 12.5 MG PO DAILY No.137/Iron/Folic Acd ( Vitamin Tablet) 1 Tab Tab, 1 TAB PO DAILY Sertraline Hcl (Zoloft) 50 Mg Tab, 50 MG PO DAILY Scheduled PRN Acetaminophen (Mapap) 500 Mg Tab, 650 MG PO Q4HP PRN for MILD PAIN (PS 1-4) Physical Examination Physical Examination GENERAL: Alert and oriented times three. BREAST: . ABDOMEN: Gravid and non-tender to touch. FETUS: Is vertex (VTX) by sterile vaginal examination (SVE), and TAUS in clinic today HEART RATE: Regular rate and rhythm. LUNGS: normal work of breathing. EXTREMITIES: No edema. No clonus. SVE: 50/-2 Pertinent Laboratoy Data Blood Type: AB+ RBC Antibody Screen: Negative HIV: Negative Hepatitis B: Negative Hepatitis C: Unknown Rapid Plasma Reagin: Nonreactive Rubella: Immune Varicella: Nonreactive Chlamydia/Gonorrhea: Negative Group B Streptococcus: Negative Quad Screen Test: Negative Cystic Fibrosis: Negative Anatomy Ultrasound Placenta Location: Anterior Normal Anatomy: Yes Estimated Weight (grams): 3500 Steroid Therapy Steroid Therapy: No Vaginal Examination Dilation: 1cm Effacement: 50% Station: -2 Cervical Consistency: Medium Cervical Position: Middle Presentation: Cephalic presentation Assessment Heart Rate (FHR): 140 Variability: Moderate Accelerations: Positive Decelerations: None Tocometer Contractions: Yes Frequency: regular Duration: less than 60 seconds Strength: palpated as mild Multi-drug resistant Organism: No history of MDRO Assessment/Plan Assessment 29 yo @ 37+3 by LMP C/W 1ST US admitted for IOL for CHTN on meds. Hemodynamically stable. admission BP 142/60. Pelvic proved to 9Lb. RH POS, GBS NEG, CEPHALIC, EFW 3500g 1. CHTN on meds- pre e labs pending on admission 2. Polyhydromnios 3. obesity, prepregnancy BMI 33 4. Depression on zoloft 50mg 5. back pain with herniated disc- does PT 6. Abnormal 1hr, normal 3hr GTT Plan Admit and orient. 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 Diet: regular x1, then clear once labor starts Group B Streptococcus (GBS) negative. Labs and intravenous (IV) per unit protocol. Counseled on Pitocin and induction of labor (IOL). Lactated Ringers (LR): Bolus 1000 mL, then at 125 mL/hr. Anticipate normal spontaneous delivery (). C-S as appropriate. JERICHO MOYA MD Mar 09, 2020 18:29
[2020-03-09 20:01] LABS: HEMATOCRIT 35.8 % (36.0-47.0); HEMOGLOBIN 11.8 g/dl (12.0-15.5); MEAN CORPUSCULAR HEMOGLOBIN 26.5 pg (27.0-33.0); MEAN CORPUSCULAR VOLUME 80.4 fl (80.0-96.0); PLATELET COUNT, AUTOMATED 268 10^3/uL (150-450); RED BLOOD COUNT 4.45 10^6/uL (4.00-5.40)
[2020-03-09 20:52] LABS: ALT/SGPT 19 U/L (12-78); BILIRUBIN,TOTAL 0.2 MG/DL (0.2-1.0); CREATININE FOR GFR 0.46 MG/DL (0.55-1.30); GLOMERULAR FILTRATION RATE > 60.0 (>60); LDH LACTATE DEHYDROGENASE 251 U/L (84-246); URIC ACID 3.9 MG/DL (2.6-6.0)
[2020-03-10] VITALS (37 sets, daily range): BP systolic 77–139; BP diastolic 44–80
[2020-03-10] MEDS ORDERED: BUTORPHANOL 2 MG/ML INJ (J0595) IV ONE (00:30)
[2020-03-10] MEDS ORDERED: PROMETHAZINE INJ 25 MG/ML VIAL (J2550) IV ONE (00:30)
--- NOTE | 2020-03-10 07:28 | IPNPDOC ---
Obstetrical Progress Note Date of Service Mar 10, 2020 Subjective to room for assessment. patient had a good night. she is comfortable in bed. Patient has now stopped feeling her contractions. she is ricky now once every 10 min. FHT: 135, Mod caesar,+accels, -Decel---cat I tracing TOCO: 02/16O SVE: /-3 A/P IOL for CHTN on meds- bp has been appropriate. continues to be in latent labor. cytotec ordered, but has not been given yet. will start pitocin at this time as patient has stopped feeling her contractions and they have not mininished in frequency. cat I Tracing. Anticipate . Objective Vital Signs Date Time Temp Pulse Resp B/P (MAP) Pulse Ox O2 Delivery O2 Flow Rate FiO2 03/10/20 06:26 81 18 118/60 (79) 03/10/20 05:50 99.3 03/10/20 01:27 Room Air JERICHO MOYA MD Mar 10, 2020 07:28
[2020-03-10] MEDS ORDERED: OXYTOCIN DRIP 30 UNITS in IV 1 EA IV SCH (07:30)
[2020-03-10] MEDS ORDERED: SERTRALINE HCL 25 MG TABLET PO SCH (09:00)
[2020-03-10] MEDS ORDERED: miSOPROStol 50MCG 1/2 TABLET PO ONE ×3 (09:30→19:15)
--- NOTE | 2020-03-10 10:07 | IPNPDOC ---
Text Note Date of Service The patient was seen on 03/10/20. NOTE Item Value Date Time Creatinine 0.46 MG/DL L 03/09/20 1756 Glomerular Filtration Rate > 60.0 03/09/20 1756 Uric Acid 3.9 MG/DL 03/09/20 1756 Total Bilirubin 0.2 MG/DL 03/09/20 1756 Aspartate Amino Transf (AST/SGOT) 25 U/L 03/09/20 1756 Alanine Aminotransferase (ALT/SGPT) 19 U/L 03/09/20 1756 Lactate Dehydrogenase 251 U/L H 03/09/20 1756 Item Value Date Time White Blood Count 8.0 10^3/uL 03/09/20 1756 Red Blood Count 4.45 10^6/uL 03/09/20 1756 Hemoglobin 11.8 g/dl L 03/09/20 1756 Hematocrit 35.8 % L 03/09/20 1756 Mean Corpuscular Volume 80.4 fl 03/09/20 1756 Mean Corpuscular Hemoglobin 26.5 pg L 03/09/20 1756 Mean Corpuscular Hemoglobin Concent 33.0 g/dl 03/09/20 1756 Red Cell Distribution Width 16.7 % H 03/09/20 1756 Platelet Count 268 10^3/uL 03/09/20 1756 Nucleated Red Blood Cells % (auto) 0.0 % 03/09/20 1756 03/10/20 0930 am LMP 05.05.10 EDC 03/27/20 AT 37.4 WEEKS ADMITTED FOR IOL RE CHTN ON MEDS AND POLYHYDRAMNIOS . HAD CONTRACTIONS THEREFORE STARTED ON PITOCIN EXAMINATION REVEALED POLYHYDRAMNIOS VERTEX CATEGORY 1 STRIP CERVIX POSTERIOR THICK 1 CM NOT CANDIDATE FOR BULB CATHETER. PLAN OF CARE D/C PITOCIN AFTER 1 HOUR IF NO CONTRACTIONS PO CYTOTEC . PATIENT EXPRESSED UNDERSTANDING PATIENT WILL CONTINUE ZOLOFT AND HCTZ . PATIENT REMAINED CHRONIC HYPERTENSION POST PRE E AT LAST VS,Fishbone, I+O VS, Fishbone, I+O Laboratory Tests 03/09/20 17:56 Vital Signs Date Time Temp Pulse Resp B/P (MAP) Pulse Ox O2 Delivery O2 Flow Rate FiO2 03/10/20 06:26 81 18 118/60 (79) 03/10/20 05:50 99.3 03/10/20 01:27 Room Air Darien Dhillon MD Mar 10, 2020 09:50
[2020-03-10] MEDS: SERTRALINE HCL 50 MG TAB PO SCH (11:36)
[2020-03-10] MEDS: hydroCHLOROthiazide 12.5 MG CAPSULE PO SCH (11:37)
[2020-03-11] VITALS (37 sets, daily range): BP systolic 82–172; BP diastolic 39–96
[2020-03-11] MEDS ORDERED: OXYTOCIN DRIP 30 UNITS in IV 1 EA IV SCH (08:30)
[2020-03-11] MEDS ORDERED: OXYTOCIN 30 UNITS IN 0.9% NaCl 500ML IV BAG (J2590) As Ordered ONE ×2 (08:31→18:58)
[2020-03-11] MEDS: LR 1,000 ML IV SCH ×3 (09:05→15:55)
[2020-03-11] MEDS: SERTRALINE HCL 50 MG TAB PO SCH (09:26)
[2020-03-11] MEDS: hydroCHLOROthiazide 12.5 MG CAPSULE PO SCH (09:38)
[2020-03-11] MEDS ORDERED: FENTANYL 2MCG/ML ROPIVACAINE 0.2% IN 0.9% NACL 100ML IVBAG As Ordered ONE (15:31)
[2020-03-11] MEDS ORDERED: EPIDURAL COMMENT XX SCH (16:00)
[2020-03-11] MEDS ORDERED: diphenhydrAMINE 50MG/ML VIAL (J1200) IV PRN ×3 (16:00→23:00)
[2020-03-11] MEDS ORDERED: FENTANYL/ROPIVACAINE/NACL BAG 100 ML EPIDURAL SCH (16:00)
[2020-03-11] MEDS ORDERED: ePHEDrine SULFATE 25 MG/5 ML(5MG/ML) SYRINGE IV PRN (16:00)
[2020-03-11] MEDS ORDERED: ONDANSETRON 4MG/2ML VIAL IV PRN ×3 (16:00→23:00)
[2020-03-11] MEDS ORDERED: REFRIGERATOR IV KEYS XX PRN (16:00)
[2020-03-11] MEDS ORDERED: EPIDURAL/PCA KEYS XX PRN (16:00)
[2020-03-11] MEDS ORDERED: NALOXONE INJ 0.4MG/1ML VIAL (J2310 PER 1MG) IV PRN ×3 (16:00→23:00)
[2020-03-11] MEDS ORDERED: CLINDAMYCIN 900 MG in IV 1 EA IV ONE (17:45)
[2020-03-11] MEDS ORDERED: BICITRA 30ML SOLN UDC PO ONE (17:45)
[2020-03-11] MEDS ORDERED: BUPIVACAINE HCL 0.25% 10ML VIAL SC ONE (17:45)
--- NOTE | 2020-03-11 18:17 | IPNPDOC ---
Text Note Date of Service The patient was seen on 03/11/20. NOTE 03/11/20 admitted iol due to chtn, polyhydramnios. had 3 lots Cytotec, Pitocin with Cook's catheter no change in cervix 2 cm posterior unstable lie unable to arom . reviewed primary c/s due to above. reviewed risks re hemorrhage due to polyhydramnios, inability to contract uterus, infection perforation nicu admission of baby potential blood transfusion,remote risk hysterectomy remote . expressed concern but signed consent. measures that will be taken are on hand blood, Cytotec Pitocin, Hemabate tranexamic acid .20 minute discussion all questions answered VS,Fishbone, I+O VS, Fishbone, I+O Vital Signs Date Time Temp Pulse Resp B/P (MAP) Pulse Ox O2 Delivery O2 Flow Rate FiO2 03/11/20 16:53 126 18 115/62 (79) 03/11/20 16:31 98.6 03/10/20 01:27 Room Air Darien Dhillon MD Mar 11, 2020 18:14
[2020-03-11] MEDS: ACETAMINOPHEN 650 MG SUPP PR SCH ×2 (18:27→21:16)
[2020-03-11 18:40] LABS: HEMATOCRIT 35.1 % (36.0-47.0); HEMOGLOBIN 11.5 g/dl (12.0-15.5); MEAN CORPUSCULAR HEMOGLOBIN 26.4 pg (27.0-33.0); MEAN CORPUSCULAR HGB CONC 32.8 g/dl (32.0-36.5); MEAN CORPUSCULAR VOLUME 80.7 fl (80.0-96.0); PLATELET COUNT, AUTOMATED 272 10^3/uL (150-450); RED BLOOD COUNT 4.35 10^6/uL (4.00-5.40); WHITE BLOOD COUNT 9.9 10^3/uL (4.0-10.0)
[2020-03-11] MEDS ORDERED: AZITHROMYCIN INJ 500 MG, VIAL MATE ADAPTER 1 EACH in D5W 250 ML IV ONE (18:45)
[2020-03-11] MEDS ORDERED: MORPHINE PRES-FREE INJ 10 MG/10 ML VIAL (J2274) As Ordered ONE (18:58)
[2020-03-11] MEDS ORDERED: LIDOCAINE 2% W/EPINEPHRINE 20ML VIAL **PRES FREE As Ordered ONE (18:58)
[2020-03-11] MEDS ORDERED: KETOROLAC 60MG 2ML VIAL As Ordered ONE ×2 (19:12→19:13)
[2020-03-11] MEDS ORDERED: OXYTOCIN INJ 10 UNITS/ML VIAL (J2590) As Ordered ONE (19:12)
[2020-03-11] MEDS ORDERED: ONDANSETRON 4MG/2ML VIAL As Ordered ONE (19:13)
[2020-03-11] MEDS ORDERED: METOCLOPRAMIDE INJ 10MG/2ML VIAL (J2765 PER 1) As Ordered ONE (19:14)
[2020-03-11 19:46] LABS: CORD GAS O2 SAT A 26.6 %; CORD GAS PCO2 A 80.5 mmHg; CORD GAS PH A 7.074 UNITS; CORD GAS PO2 A 17.9 mmHg; CORD GAS SBC A 15.8 MEQ/L; CORD GAS TCO2 A 25.5 MEQ/L
[2020-03-11 19:48] LABS: CORD GAS ABE V -8.6; CORD GAS HCO3 V 21.6 MEQ/L; CORD GAS O2 SAT V 40.5 %; CORD GAS PCO2 V 64.3 mmHg; CORD GAS PH V 7.144 UNITS; CORD GAS PO2 V 21.2 mmHg; CORD GAS SBC V 16.4 MEQ/L; CORD GAS TCO2 V 23.6 MEQ/L
[2020-03-11] MEDS ORDERED: PHENYLephrine 500MCG 5ML (100MCG/ML) SYRINGE As Ordered ONE (20:11)
[2020-03-11] MEDS ORDERED: LR 1,000 ML IV SCH (21:06)
[2020-03-11] MEDS ORDERED: METHYLERGONOVINE MALEATE 0.2 MG TAB PO PRN (21:15)
[2020-03-11] MEDS ORDERED: MOM 30ML SUSPENSION UDC PO PRN (21:15)
[2020-03-11] MEDS ORDERED: ANUSOL HC CREAM 30GM TOP PRN (21:15)
[2020-03-11] MEDS ORDERED: ACETAMINOPHEN TAB 650MG DOSE (2X325MG) PO PRN (21:15)
[2020-03-11] MEDS ORDERED: ACETAMINOPHEN 500 MG TAB PO PRN (21:15)
[2020-03-11] MEDS ORDERED: OXYTOCIN DRIP 30 UNITS in IV 1 EA IV ONE (21:15)
[2020-03-11] MEDS ORDERED: MEASLES,MUMPS,RUBELLA VACCINE INJ (MMR-II) (90707) SC SCH (21:15)
[2020-03-11] MEDS ORDERED: RHOGAM 300 MCG (1500 IU) INJ (J2790) IM SCH (21:15)
[2020-03-11] MEDS ORDERED: OXYTOCIN INJ 10 UNITS/ML VIAL (J2590) IV ONE (21:15)
[2020-03-11] MEDS ORDERED: HYDROMORPHONE HCL 0.5 MG/ 0.5 ML SYRINGE (J1170 PER 1) IV PRN (22:00)
[2020-03-11] MEDS ORDERED: fentaNYL 100 MCG/2 ML INJECTION (J3010) IV PRN (22:00)
[2020-03-11] MEDS ORDERED: MEPERIDINE INJ 25 MG/ML VIAL (J2175) IV PRN (22:00)
[2020-03-11] MEDS ORDERED: oxyCODONE 5MG TAB PO PRN (22:00)
[2020-03-11] MEDS ORDERED: NALBUPHINE HCL 10 MG/ML AMP (J2300) IV PRN (23:00)
[2020-03-11] MEDS ORDERED: METOCLOPRAMIDE INJ 10MG/2ML VIAL (J2765 PER 1) IV PRN (23:00)
[2020-03-11] MEDS: DOCUSATE SODIUM 100MG CAPSULE PO PRN (23:10)
[2020-03-11] MEDS: PERCOCET 5MG/325MG TAB PO PRN (23:11)
[2020-03-12] VITALS (7 sets, daily range): BP systolic 105–130; BP diastolic 60–75
[2020-03-12] MEDS ORDERED: KETOROLAC 30 MG/ML 1ML VIAL IV SCH
[2020-03-12] MEDS: LR 1,000 ML IV SCH (01:10)
[2020-03-12] MEDS: KETOROLAC 30 MG/ML 1ML VIAL IV SCH ×3 (02:04→13:49)
[2020-03-12] MEDS: PERCOCET 5MG/325MG TAB PO PRN ×4 (05:20→22:15)
--- NOTE | 2020-03-12 07:45 | IPN ---
PROGRESS NOTE DATE: 03/12/2020 SUBJECTIVE: This lady is a 29-year-old 4 now para 3, who was admitted for induction of labor because of chronic hypertension and polyhydramnios at 37 and 3 weeks gestation. She had a primary section because of chronic hypertension, polyhydramnios, unstable lie, and incoordinate uterus. She delivered a male 7 pounds 10 ounces (3450 grams). Apgars 8 and 9 at one and five minutes respectively. Arterial pH 7.07, base excess -9.0; venous pH 7.14, base excess -8.6. On her first day, we discussed phlebitis, cystitis, mastitis, endometritis, cellulitis, diet, exercise, pain management, perineal breast and wound care. OBJECTIVE: On examination today abdomen is soft. Uterus 2 below. Lochia moderate. Four quadrant bowel sounds are noted. Incision is clean and dry. Her blood pressure is 105/62, respirations are 16, pulse is 86, temperature is 98.0. She is presently on Zoloft and hydrochlorothiazide for chronic hypertension. LABORATORY DATA: Her admitting hemoglobin was 11.8, hematocrit 35.8, and platelets were 268,000. At 1800 hours on 03/11/2020, her hemoglobin was 11.5, hematocrit 35.1, and platelets were 272,000. We are awaiting her day one hemoglobin. ASSESSMENT AND PLAN: She is feeling well. She is mobilizing, voiding, passing gas, and is breast feeding on demand. Plan of management is tomorrow for discharge. supervisor nurse medications at [facility]. Two week incision check and six week check. In regards to control, is having a vasectomy. She is moving to [place] and will not require any contraception.
[2020-03-12] MEDS: PRENATAL VITAMINS CHEWABLE TABLET PO SCH (07:55)
[2020-03-12 08:05] LABS: HEMATOCRIT 31.5 % (36.0-47.0); MEAN CORPUSCULAR HGB CONC 31.7 g/dl (32.0-36.5); PLATELET COUNT, AUTOMATED 209 10^3/uL (150-450); RED BLOOD COUNT 3.84 10^6/uL (4.00-5.40); WHITE BLOOD COUNT 8.1 10^3/uL (4.0-10.0)
--- NOTE | 2020-03-12 08:09 | RO ---
OPERATIVE NOTE DATE OF OPERATION: 03/11/2020 PREOPERATIVE DIAGNOSIS: Chronic hypertension, polyhydramnios. POSTOPERATIVE DIAGNOSIS: Chronic hypertension, polyhydramnios, incoordinate uterus. OPERATION PROPOSED: Primary section. OPERATION PERFORMED: Primary section. SURGEON: Darien Dhillon M.D. [employer] SUPERVISOR: Soumya Lipscomb M.D. for extraction, retractions and visualization without which the procedure could not proceed. ANESTHESIA: Epidural plus local anesthetic for intraperitoneal procedures. ESTIMATED BLOOD LOSS: 400 mL Amniotic fluid drained off prior to delivery of the infant was 2500 mL of clear liquor. DESCRIPTION OF PROCEDURE: Acetaminophen suppository 1300 mg per rectum, sequentials in place, antibiotics appropriately preoperatively. After the timeout, a Pfannenstiel incision was made two fingerbreadths above the symphysis pubis, passing through abdominal layers, securing hemostasis, opening the peritoneal cavity. Huge varicosities in the lower anterior uterine segment. We did a low transverse incision into the myometrium. Bulging membranes were noted. We slowly removed 2500 mL of clear amniotic fluid as the presenting part was floating and unstable. After extraction of 2500 mL of fluid, we were able to grasp the head and by fundal pressure, delivered a life male weighing 7 lb, 10 oz, 3450 gm, Apgars of 8 and 9 in 1 and 5 minutes respectively, male infant, cord around the neck x1. Placenta was manually removed, three vessels in cord, membranes and tissues intact. The uterus contracted well down under Pitocin. The arterial pH was 7.07, base excess minus 9.0. Venous pH was 7.14, base excess minus 8.6. The lower segment was oversewn in the usual fashion in two layers, imbricating the second layer and reperitonealization was performed. With instrument and pad count correct, both ovaries and tubes appeared to be normal. We had initially placed a Mobius prior to the procedure and we removed the Mobius at the end of the procedure. With instrument and pad count correct, the abdomen was closed with running stitch for the peritoneum, the same for the fascia, interrupted for subcu, Dexon to the skin. Marcaine 0.25% 10 mL for subcutaneous incisional pain. A Medipore dressing was placed. The patient was then placed in lithotomy position. 1000 mg of Cytotec was placed per rectum for continued uterine contraction and instrument and pad count correct. The patient and baby tolerating procedure well.
[2020-03-12] MEDS: hydroCHLOROthiazide 12.5 MG CAPSULE PO SCH (09:07)
[2020-03-12] MEDS: SERTRALINE HCL 25 MG TABLET PO SCH (09:07)
[2020-03-12] MEDS ORDERED: IBUPROFEN 800 MG TAB PO PRN (20:00)
[2020-03-12] MEDS: IBUPROFEN 600MG TAB PO PRN (20:12)
[2020-03-13 01:27] VITALS: BP 103/70
[2020-03-13] MEDS: PERCOCET 5MG/325MG TAB PO PRN ×3 (02:08→10:01)
[2020-03-13 02:09] VITALS: BP 101/76
[2020-03-13] MEDS: IBUPROFEN 600MG TAB PO PRN ×2 (03:09→08:55)
[2020-03-13] MEDS: DOCUSATE SODIUM 100MG CAPSULE PO PRN (03:09)
--- NOTE | 2020-03-13 05:30 | IPNPDOC ---
Progress Note Date of Service: Mar 13, 2020 Day#: 2 Progress Note SUBJECT: This lady is a 29-year-old 4 now para 3, who was admittedfor induction of labor because of chronic hypertension and polyhydramnios at 37and 3 weeks gestation. She had a primary section because of chronic hypertension, polyhydramnios, unstable lie, and incoordinate uterus. She delivered a male infant 7 pounds 10 ounces (3450 grams). Apgars 8 and 9 at one and five minutes respectively. She is POD 2 and is doing well She has been ambulating, voiding spontaneously without issue and tolerating regular diet. Breast feeding without issue. Reports lochia is MINIMAL Patient is ambulating well. OBJECTIVE: VITAL SIGNS: Within normal limits, afebrile. Alert and oriented times three. Breath sounds clear to auscultation. Heart rate: Regular rate and rhythm, no murmurs Abdomen: Fundus firm at U-2. Soft, NTTP. . ASSESSMENT: Sedrick is a 29-year-old 4 now Para 3013 POD2 S/P PLCD, doing well on day 2. Vitals within normal limits, afebrile, hem odynamically stable with no evidence of infection. PLAN: 1. Discharge to home today. 2. oxycodone, Tylenol and Motrin for pain. 3. Encourage breast feeding and ambulation. 4. VESECTOMY for contraception 5. Routine PP visit in 2 and 6 weeks in clinic. 6. Discussed return precautions at length. VS, I&O, 24H, Fishbone Vital Signs/I&O Vital Signs Date Time Temp Pulse Resp B/P (MAP) Pulse Ox O2 Delivery O2 Flow Rate FiO2 03/13/20 02:38 18 Room Air 03/13/20 02:09 98.0 94 101/76 (84) 99 Laboratory Data 24H LABS Laboratory Tests 2 03/12/20 07:06: Nucleated Red Blood Cells % (auto) 0.0 CBC/BMP Laboratory Tests 03/12/20 07:06 JERICHO MOYA MD Mar 13, 2020 05:30
[2020-03-13 06:00] VITALS: BP 110/73
[2020-03-13] MEDS ORDERED: IBUP80TA PO (06:31)
[2020-03-13] MEDS ORDERED: ACET-683 PO (06:31)
[2020-03-13] MEDS ORDERED: DOK1CAP7 PO (06:31)
[2020-03-13] MEDS: PRENATAL VITAMINS CHEWABLE TABLET PO SCH (08:51)
[2020-03-13] MEDS: hydroCHLOROthiazide 12.5 MG CAPSULE PO SCH (08:52)
[2020-03-13] MEDS: SERTRALINE HCL 25 MG TABLET PO SCH (09:03)
--- NOTE | 2020-03-14 09:34 | IPNPDOC ---
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 VS,Fishbone, I+O VS, Fishbone, I+O Vital Signs Date Time Temp Pulse Resp B/P (MAP) Pulse Ox O2 Delivery O2 Flow Rate FiO2 03/13/20 10:01 16 03/13/20 06:40 Room Air 03/13/20 06:00 97.8 81 110/73 (85) 98 Darien Dhillon MD Mar 14, 2020 09:34
--- NOTE | 2020-03-22 14:00 | DS.PDOC ---
Discharge Summary General Date of Admission Mar 09, 2020 at 17:58 Date of Discharge MAR 13, 2020 Discharge Summary This lady is a 29-year-old 4 now para 3, who was admittedfor induction of labor because of chronic hypertension and polyhydramnios at 37and 3 weeks gestation. She had a primary section because of chronic hypertension, polyhydramnios, unstable lie, and incoordinate uterus. She delivered a male infant 7 pounds 10 ounces (3450 grams). Apgars 8 and 9 at one and five minutes respectively. She is POD 2 and is doing well She has been ambulating, voiding spontaneously without issue and tolerating regular diet. Breast feeding without issue. Reports lochia is MINIMAL Patient is ambulating well. OBJECTIVE: VITAL SIGNS: Within normal limits, afebrile. Alert and oriented times three. Breath sounds clear to auscultation. Heart rate: Regular rate and rhythm, no murmurs Abdomen: Fundus firm at U-2. Soft, NTTP. . ASSESSMENT: Sedrick is a 29-year-old 4 now Para 3013 POD2 S/P PLCD, doin g well on day 2. Vitals within normal limits, afebrile, hemodynamically stable with no evidence of infection. PLAN: 1. Discharge to home today. 2. oxycodone, Tylenol and Motrin for pain. 3. Encourage breast feeding and ambulation. 4. VESECTOMY for contraception 5. Routine PP visit in 2 and 6 weeks in clinic. 6. Discussed return precautions at length. Discharge Medications Scheduled Ferrous Gluconate (Iron) 240 Mg Tablet, 1 TAB PO DAILY, (Reported) Hydrochlorothiazide (Hydrochlorothiazide) 12.5 Mg Tab, 12.5 MG PO DAILY, (Reported) No.137/Iron/Folic Acd ( Vitamin Tablet) 1 Tab Tab, 1 TAB PO DAILY, (Reported) Sertraline Hcl (Zoloft) 50 Mg Tab, 50 MG PO DAILY, (Reported) Scheduled PRN Acetaminophen (Acetaminophen) 500 Mg Tablet, 1,000 MG PO Q6HP PRN for PAIN LEVEL 6-10 Docusate Sodium (Dok) 100 Mg Capsule, 100 MG PO QHSP PRN for CONSTIPATION Ibuprofen (Ibuprofen) 800 Mg Tablet, 800 MG PO Q8HP PRN for PAIN LEVEL 6-10 Allergies Coded Allergies: cefaclor (Verified Allergy, Intermediate, RASH, SWOLLEN JOINTS, 01/20/20) JERICHO MOYA MD Mar 22, 2020 14:00
== END 2020-03-13 13:30 | disposition home or self-care (01) | DRG 772 ==
LOC: M LDO 16:58 → M LDI 17:58 → M OBS 03-11 22:28
PROVIDERS: ADMIT Obstetrics & Gynecology; ATTEND Obstetrics & Gynecology
PROC: 3E033VJ Introduction of Other Hormone into Peripheral Vein, Percutaneous Approach (ICD-10-PCS; 2020-03-09)
PROC: 3E0DXGC Introduction of Other Therapeutic Substance into Mouth and Pharynx, External Approach (ICD-10-PCS; 2020-03-09)
PROC: 10D00Z1 Extraction of Products of Conception, Low, Open Approach (ICD-10-PCS; principal; 2020-03-11 18:30)
DX: O32.0XX0 Maternal care for unstable lie, not applicable or unspecified (principal); O10.92 Unspecified pre-existing hypertension complicating childbirth; Z37.0 Single live birth; Z3A.37 37 weeks gestation of pregnancy; E66.9 Obesity, unspecified; Z68.33 Body mass index [BMI] 33.0-33.9, adult; O99.214 Obesity complicating childbirth; F32.9 Major depressive disorder, single episode, unspecified; O99.344 Other mental disorders complicating childbirth; O40.3XX0 Polyhydramnios, third trimester, not applicable or unspecified; Z79.899 Other long term (current) drug therapy; O62.4 Hypertonic, incoordinate, and prolonged uterine contractions